=== PATIENT | female | born 1980 | race Caucasian/White ===

== ENCOUNTER → 2018-07-22 | Outpatient (CLI) | payer BC ==
--- NOTE | 2018-07-25 09:18 | MM ---
Reason for exam: screening (asymptomatic). Last mammogram was performed 4 years and 10 months ago. History: Patient had first child at age 32. Took hormonal contraceptives for 15 years beginning at age 17. Physical Findings: A clinical breast exam by your physician is recommended on an annual basis and results should be correlated with mammographic findings. MG Screening Mammo w CAD Bilateral CC and MLO view(s) were taken. Prior study comparison: September 13, 2013, bilateral digital screening mammo w/CAD. There are scattered fibroglandular densities. Finding: There is a 5-6 mm circumscribed round mass located 7-8 cm from the nipple in the outer quadrant, posterior position of the right breast. ASSESSMENT: Incomplete: need additional imaging evaluation, BI-RAD 0 RECOMMENDATION: Special view mammogram and ultrasound of the right breast. [facility] will attempt to contact patient to return for supplemental views and ultrasound.
== END | disposition home or self-care (01) ==
LOC: RADMAMWWP 07:13
PROVIDERS: ATTEND Obstetrics & Gynecology
DX: Z12.31 Encounter for screening mammogram for malignant neoplasm of breast (principal)
CPT/HCPCS: 77067

== ENCOUNTER → 2018-08-03 | Outpatient (CLI) | payer BC ==
--- NOTE | 2018-08-04 08:29 | MM ---
Reason for exam: additional evaluation requested from abnormal screening. Last mammogram was performed less than 1 month ago. History: Patient had first child at age 32. Took hormonal contraceptives for 15 years beginning at age 17. Physical Findings: Nurse did not find any significant physical abnormalities on exam. MG Work Up Mamm w CAD RT Spot compression CC, spot compression MLO, and LM view(s) were taken of the right breast. Prior study comparison: July 22, 2018, bilateral MG screening mammo w CAD. September 13, 2013, bilateral digital screening mammo w/CAD. Persistent nodule 7 o'clock right breast, 8cm from nipple. These results were verbally communicated with the patient and result sheet given to the patient on 08/03/18. ASSESSMENT: Incomplete: need additional imaging evaluation, BI-RAD 0 RECOMMENDATION: Ultrasound of the right breast.
--- NOTE | 2018-08-04 08:30 | USB ---
Reason for exam: additional evaluation requested from abnormal screening. History: Patient had first child at age 32. Took hormonal contraceptives for 15 years beginning at age 17. US Breast Workup Limited RT Right limited breast ultrasound including focal area of concern, retroareolar and axilla demonstrates a 0.5 x 0.4 x 0.5cm cystic lesion at 7 o'clock. These results were verbally communicated with the patient and result sheet given to the patient on 08/03/18. ASSESSMENT: Probably benign, BI-RAD 3 RECOMMENDATION: Ultrasound of the right breast in 6 months.
== END ==
LOC: RADMAMWWP 14:41
PROVIDERS: ATTEND Obstetrics & Gynecology
DX: R92.8 Other abnormal and inconclusive findings on diagnostic imaging of breast (principal)
CPT/HCPCS: 77065

== ENCOUNTER → 2019-02-01 | Outpatient (CLI) | payer BC ==
--- NOTE | 2019-02-01 08:44 | USB ---
Reason for exam: follow-up at short interval from prior study. History: Patient had first child at age 32. Took hormonal contraceptives for 15 years beginning at age 17. Physical Findings: Nurse did not find any significant physical abnormalities on exam. US Breast Limited RT Right limited breast ultrasound including focal area of concern, retroareolar and axilla demonstrates a 0.4 x 0.2 x 0.3cm cystic lesion at 7 o'clock, smaller than previous. These results were verbally communicated with the patient and result sheet given to the patient on 02/01/19. ASSESSMENT: Benign, BI-RAD 2 RECOMMENDATION: Return to routine screening mammogram schedule for both breasts. Back on schedule for July 2019.
== END | disposition home or self-care (01) ==
LOC: RADUSWWP 08:00
PROVIDERS: ATTEND Obstetrics & Gynecology
DX: R92.8 Other abnormal and inconclusive findings on diagnostic imaging of breast (principal)

== ENCOUNTER 2019-06-16 10:35 | Day surgery (SDC) | payer BC ==
[2019-06-14 11:58] VITALS: BMI 26.9
[~2019-06-16 10:35] MED LIST: LACTATED RINGERS 1,000 ML IV SCH
[2019-06-16 11:02] VITALS: TEMP 98.2
[2019-06-16] MEDS ORDERED: LIDOCAINE 1% 20 ML VIAL (10MG/ML) FOR IV START INTRADERMA ONE (11:03)
[2019-06-16] MEDS ORDERED: PROPOFOL 10 MG/ML 20 ML VIAL IV ONE (11:59)
[2019-06-16] MEDS ORDERED: LIDOCAINE 1% INJ 10MG/ML (20 ML MDV) ONE (11:59)
--- NOTE | 2019-06-16 12:19 | P.PCN ---
Date of Procedure: 06/16/19 Procedure(s) Performed: BRIEF HISTORY: Patient is a 38-year-old pleasant female scheduled for an elective colonoscopy as a part of screening for colorectal neoplasia. Her paternal grandmother and maternal grandfather was diagnosed with colon cancer. Her last coloscopy was 5 years ago. PROCEDURE PERFORMED: Colonoscopy. PREOPERATIVE DIAGNOSIS: Screening for colon cancer/family history of colon cancer. IV sedation per Anesthesia. PROCEDURE: After informed consent was obtained, the patient, was brought into the endoscopy unit. IV sedation was administered by Anesthesia under continuous monitoring. Digital rectal examination was normal. Initially the Olympus CF-160 flexible video colonoscope was then inserted in the rectum, gradually advanced into the cecum without any difficulty. Careful examination was performed as the scope was gradually being withdrawn. Ileocecal valve and the appendiceal orifice were visualized and appeared normal. Prep was excellent. Mucosa of the cecum, ascending colon, transverse colon, descending colon, sigmoid colon, and rectum appeared normal. Retroflexion was performed in the rectum and no lesions were seen. The patient tolerated the procedure well. IMPRESSION: Normal-appearing colon from rectum to cecum with no evidence of colorectal neoplasia. RECOMMENDATIONS: Findings of this examination were discussed with the patient is a family. She was advised to have a repeat screening colonoscopy in 5 years.
[2019-06-16 12:32] VITALS: RESP 18
[2019-06-16 12:50] VITALS: BP 130/70; PULSE 67
== END 2019-06-16 12:51 | disposition home or self-care (01) ==
LOC: ORWHC2ENDO 10:35
PROVIDERS: ATTEND Internal Medicine Gastroenterology
DX: Z12.11 Encounter for screening for malignant neoplasm of colon (principal); Z80.0 Family history of malignant neoplasm of digestive organs; Z87.891 Personal history of nicotine dependence
CPT/HCPCS: 81025; J2001; J2704; G0105

== ENCOUNTER → 2019-11-09 | Outpatient (CLI) | payer BC ==
--- NOTE | 2019-11-09 16:21 | CT ---
EXAMINATION TYPE: CT brain wo con DATE OF EXAM: 11/09/2019 COMPARISON: None. HISTORY: Headache. CT DLP: 1233 mGycm. Automated Exposure Control for Dose Reduction was Utilized. TECHNIQUE: CT scan of the head is performed without contrast. FINDINGS: There is no acute intracranial hemorrhage, mass effect, or midline shift identified. The ventricles and sulci are within normal limits in size. Nino-white matter differentiation is maintain ed. The globes are intact and the visualized sinuses are clear. The calvarium is intact. IMPRESSION: No acute intracranial hemorrhage or midline shift is seen.
== END | disposition home or self-care (01) ==
LOC: RADCTMAIN 15:59
PROVIDERS: ATTEND Physician Assistant
DX: R51 Headache (principal)
CPT/HCPCS: 70450

== ENCOUNTER → 2019-12-12 | Outpatient (CLI) | payer BC ==
--- NOTE | 2019-12-12 08:08 | US ---
EXAMINATION TYPE: US abdomen APPY DATE OF EXAM: 12/12/2019 COMPARISON: NONE CLINICAL HISTORY: R10.33 PERIUMBILICAL PAIN. Pain 1 week before her cycle that has since went away APPENDIX AP Diameter (normal < 6mm): 4 mm Measured outer wall to outer wall. Is the appendix seen in its entirety from the proximal cecum to distal end: No. Tube like structure visualized in the RLQ measuring 0.4 cm, possible appendix vs other Does the appendix wall appear hypervascular: No Is an appendicolith present: No Is there inflammatory changes or free fluid present: No No sonographic evidence for appendicitis on this exam IMPRESSION: Incomplete visualization of the appendix. Correlate clinically.
--- NOTE | 2019-12-12 08:15 | US ---
EXAMINATION TYPE: US pelvic complete DATE OF EXAM: 12/12/2019 COMPARISON: NONE CLINICAL HISTORY: R10.33 PERIUMBILICAL PAIN. TECHNIQUE: . Transabdominal sonographic images of the pelvis were acquired. Date of LMP: 11/16/2019 EXAM MEASUREMENTS: Uterus: 6.5 x 3.9 x 6.0 cm Endometrial Stripe: 0.5 cm Right Ovary: 3.5 x 1.5 x 1.7 cm Left Ovary: 2.1 x 1.3 x 1.2 cm 1. Uterus: Anteverted wnl 2. Endometrium: wnl 3. Right Ovary: wnl 4. Left Ovary: wnl 5. Bilateral Adnexa: wnl 6. Posterior cul-de-sac: wnl IMPRESSION: No distinct abnormality appreciated.
== END ==
LOC: RADUSWWP 06:54
PROVIDERS: ATTEND Family Medicine
DX: R10.33 Periumbilical pain (principal)
CPT/HCPCS: 76705; 76856

== ENCOUNTER → 2020-03-04 | Outpatient (CLI) | payer BC ==
--- NOTE | 2020-03-11 10:55 | MM ---
Reason for exam: screening (asymptomatic). Last mammogram was performed 1 year and 7 months ago. History: Patient had first child at age 32. Took hormonal contraceptives for 15 years beginning at age 17. Physical Findings: A clinical breast exam by your physician is recommended on an annual basis and results should be correlated with mammographic findings. MG Screening Mammo w CAD Bilateral CC and MLO view(s) were taken. Prior study comparison: August 03, 2018, right breast MG work up mamm w CAD RT. July 22, 2018, bilateral MG screening mammo w CAD. There are scattered fibroglandular densities. No significant changes when compared with prior studies. ASSESSMENT: Negative, BI-RAD 1 RECOMMENDATION: Routine screening mammogram of both breasts in 1 year.
== END | disposition home or self-care (01) ==
LOC: RADMAMWWP 13:14
PROVIDERS: ATTEND Obstetrics & Gynecology
DX: Z12.31 Encounter for screening mammogram for malignant neoplasm of breast (principal)
CPT/HCPCS: 77067

== ENCOUNTER → 2020-10-24 | Outpatient (CLI) | payer BC ==
--- NOTE | 2020-10-24 09:38 | US ---
EXAMINATION TYPE: US kidneys/renal and bladder DATE OF EXAM: 10/24/2020 COMPARISON: NONE CLINICAL HISTORY: K83.8 other specified diseases of billary tract. EXAM MEASUREMENTS: Right Kidney: 12.2 x 4.1 x 5.5 cm Left Kidney: 10.8 x 5.6 x 5.6 cm Right Kidney: There may be some minimal prominence of the renal collecting system.. Cystic area visua lized upper pole measuring 0.5 cm Left Kidney: No hydronephrosis or masses seen Bladder: wnl Bilateral Jets seen: Yes IMPRESSION: 1. Small cortical renal cyst right kidney. 2. Minimal right renal hydronephrosis.
== END | disposition home or self-care (01) ==
LOC: RADUSWWP 07:03
PROVIDERS: ATTEND Family Medicine
DX: N28.1 Cyst of kidney, acquired (principal); N13.30 Unspecified hydronephrosis
CPT/HCPCS: 76770

== ENCOUNTER → 2020-12-20 | Outpatient (CLI) | payer BC ==
--- NOTE | 2020-12-20 08:48 | MR ---
MRI CERVICAL SPINE: CLINICAL HISTORY: Neck pain causing pain and weakness N numbness into right arm for 6 months TECHNIQUE: Multiplanar, multisequence imaging of the cervical spine is performed without IV contrast. COMPARISON: None. FINDINGS: Sagittal images of the cervical spine show the craniocervical junction to appear within nor mal limits. The cervical and upper thoracic spinal cord is normal in caliber and signal. Slight grad e 1 retrolisthesis C5 on C6 and to lesser degree C6 on C7. The vertebral body heights are normal. M ild to moderate disc space narrowing C5-C6 level. Moderate anterior spurring C6-C7 level. The bone ma rrow signal intensity is within normal limits. Axial images show C2-C3 through the C4-C5 level to appear within normal limits. Axial images at C5-C6 level. Spondylolisthesis with broad-based right paracentral disc protrusion, th ere is effacement of the anterior thecal sac along with moderate to severe right-sided neural foramin al narrowing, there is mild left-sided neural foraminal narrowing. Axial images at C6-C7 level shows spondylolisthesis with small right paracentral/foraminal disc protr usion causing asymmetric mild right-sided neural foraminal narrowing. Axial images at C7-T1 level appear within normal limits. IMPRESSION: Spondylolisthesis and degenerative changes at C6-C7 and to greater degree at C5-C6 as det nadine above.
== END | disposition home or self-care (01) ==
LOC: RADMRIMAIN 08:07
PROVIDERS: ATTEND Family Medicine
DX: M48.02 Spinal stenosis, cervical region (principal); M50.223 Other cervical disc displacement at C6-C7 level; M47.812 Spondylosis without myelopathy or radiculopathy, cervical region; M43.12 Spondylolisthesis, cervical region
CPT/HCPCS: 72141

== ENCOUNTER 2021-05-13 05:41 | Day surgery (SDC) | payer BC ==
[2021-05-07 09:20] VITALS: BMI 27.4
--- NOTE | 2021-05-12 08:25 | P.HPOR ---
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 Location diffuse Activity Modification yes , unable to perform bending/lifting/twisting motions regarding the neck. Hand Dominance right DOI: Pain started in 01/2020 with no known injury or trauma. Acute on chronic cervical disc herniation. TREATMENTS COMPLETED: 6 weeks of PT completed? Yes How many sessions? 12 Did it help? Temporary improvement but has since waned Physician directed home exercise completed? No Medications yes List: Medrol dose sean with no relief Alternative interventions Chiropractic?: yes , with no relief Brace: No Injections No RFA: No SUBJECTIVE: Patient presents to the office for her pre-operative appointment to review and questions she may have. Since the time of the last appointment the patient notes that her symptoms have failed to improve with any conservative treatments tried and is unable to complete many of her daily functions due to her ongoing symptomology. Patient is ready to proceed with the planned procedure at this time. Patient denies any bladder or bowel issues, no perineal numbness/tingling, and ambulates without the use of any aides. HPI: Ms. Jacome last presented to the office on 02/07/2021 for an evaluation of her cervical radiculopathy. To review, the patient states that her symptoms have been ongoing for 1 year with no known injury or trauma to indicate an exact onset of her symptoms. Regarding her symptoms, the patient states that she has moderate pain about the neck diffusely which is constant. The patient states that she has radiculopathic pain radiating down into her right upper extremity. Furthermore, the patient reports numbness and tingling in the index, middle, and ring fingers that is also constant, but worsens with using the right hand. The patient reports that since the initial onset of the pain she has had weakness about the right arm and hand, which has gradually worsened over time. Regarding her symptoms, she notes that they are exacerbated with bending/lifting/twisting motions and ambulation. Patient reports being previously evaluated by Dr. Emma larson for this issue and was referred here for further treatment. Regarding treatments, the patient reports seeing a chiropractor 5 times with no improvement to her symptoms.Overall she feels that her symptoms have progressively worsened and have not improved with conservative treatments thus far. She notes that it is increasingly difficult for her to complete her daily tasks due to her symptomology. The patients' past social, medical, family, surgical history, as well as review of systems, have been reviewed. Please refer to the Neurosurgery History and Physical form that has been scanned in to our electronic medical record system. Review of Systems 14 points review of systems completed and as stated in HPI, all other systems reviewed are negative. Past Medical History Past Medical History: Musculoskeletal Disorder Additional Past Medical History / Comment(s): numbness down right arm primarily History of Any Multi-Drug Resistant Organisms: None Reported Past Surgical History: Section Past Anesthesia/Blood Transfusion Reactions: No Reported Reaction Smoking Status: Former smoker - Past Family History Mother Family Medical History: No Reported History Medications and Allergies Home Medications Medication Instructions Recorded Confirmed Type Ascorbic Acid [Vitamin C] 500 mg PO DAILY 05/07/21 05/07/21 History Calcium Carbonate [Calcium] 600 mg PO DAILY 05/07/21 05/07/21 History Cholecalciferol [Vitamin D3 (25 25 mcg PO DAILY 05/07/21 05/07/21 History Mcg = 1000 Iu)] Turmeric Root Extract [Turmeric] 500 mg PO DAILY 05/07/21 05/07/21 History Allergies Allergy/AdvReac Type Severity Reaction Status Date / Time No Known Allergies Allergy Verified 05/07/21 09:20 Physical Examination Osteopathic Statement: *. No significant issues noted on an osteopathic structural exam other than those noted in the History and Physical/Consult. PHYSICAL EXAMINATION: General: Awake, alert, appropriate for age, in no acute distress. HEENT: No unusual neck masses around region of lateral neck triangle, thyroid, supraclavicular groove Extremities: Skin warm and dry without acute lesions, coloration, temperature, skin intact, no tenderness or erythema Integument: Hairy patches: Absent Dorsal skin dimples: Absent Cafe au lait spots: Absent Surgical incisions: No Palpation: Please see Pain drawing on Intake sheet for further detail. Midline spinal tenderness: No E6 Paralumbar tenderness: No E6 Parathoracic tenderness: No E6 Buttocks tenderness: No E6 Special findings: No POSTURAL and MUSCULO-SKELETAL EVALUATION: Coronal Balance: NEUTRAL Recumbent testing: Patient is able to lay flat on back Sagittal Balance: NEUTRAL Shoulder Profile: LEVEL Pelvic Girdle: LEVEL Neck ROM: RESTRICTED Lumbar ROM: UNRESTRICTED Shoulder ROM: Symmetrical Hip ROM: Symmetrical Knee ROM: Symmetrical Hands: Normal appearance, symmetrical Feet: Normal appearance, Symmetrical VASCULAR STATUS : LEFT RIGHT Wrist Pulses INTACT INTACT Pedal Pulses (Dors. pedis & post.tibialis) INTACT INTACT Color NORMAL NORMAL Edema Absent Absent NEUROLOGIC EXAMINATION: Mental Status:Awake and alert, fully oriented, with normal attention, concentration and memory, and fluent, appropriate speech. Cranial Nerves: I: Olfactory not tested. II: Visual acuity normal, no visual field deficit noted with confrontation. III,IV: Normal pupillary reflexes & intact extraocular movements without nystagmus. V,: Intact symmetrical facial sensation. VII: Intact symmetrical facial motor movement VIII: Hearing intact. IX,X: Intact gag, swallow, & normal voice. XI: Sternocleidomastoid, trapezius function intact. XII: Tongue midline with normal movements. L'hermitte's Sign: Negative / absent Spurling'Sign: Absent bilaterally. Cubital percussion test: Absent bilaterally. Stefanie-Tinel sign - Carpal region: Absent bilaterally. Straight Leg Raising: Absent bilaterally. Crossed straight leg raise: negative O8 MOTOR EXAM (0-5/5, N/T) STRENGTH RIGHT LEFT Shoulder Abd (not part of the MOJGAN score) 5 5 Elbow Flexors 5 5 Elbow Extensor 4 5 Wrist Dorsiflexors 4 5 Finger Abductor 5 5 Hydrography Teacher 4+ 5 Hip Flexor (Not part of MOJGAN Motor score) 5 5 Knee Flexor 5 5 Knee Extensor 5 5 Ankle dorsiflexor 5 5 Ankle plantarflexion 5 5 Extensor hallucis 5 5 REFLEXES(0-4/2, NT) RIGHT LEFT Upper Extremities 3+ 3+ Lower Extremities 2 2 Pathological Reflexes RIGHT LEFT Vora's Absent Present Clonus Absent Absent Babinski Absent Absent # Indicates mechanical impairment Muscle appearance: Symmetrical, without signs of atrophy or dystrophy. Rectal Tone:Deferred Normal, strong with volition control Sensory system (0-4, N/T) Test type RU JOSE RL LL Joint-Position 2 2 2 2 Vibration 2 2 2 2 Pain & LT sense 2 2 2 2 Dermatomal Deficit: C6-7 None None None Gait and Functional Evaluation: Ambulatory aids: Independent Romberg's test: Intact bilaterally Toe heel walk / heel-toe walk intact while maintaining satisfactory balance? yes Squatting/straightening w/o assistance to a min of 60 degree knee flexion? yes Single leg stance: intact Trendelenburg sign negative bilaterally Hand and finger dexterity intact bilaterally? yes Disdiadochokinesis examination negative bilaterally? yes Results XRAY C spine - Spondylosis noted of the C5-7 region with disc collapse. No fracture or dislocation noted at this time. No overt instability. C0-1 and C1-2 are stable through F/E. There is no subaxial instability. MRI C spine - This demonstrates cervical spondylosis C5-7 with HNP C5-6 and C6-7 with stenosis moderate to severe at these levels. There is bilateral foraminal stenosis related to this as well. There is disc height collapse secondary to this. There is no fracture or dislocation noted. There is no C0-1 or C1-2 instability noted at this time. Subaxial C spine appears stable otherwise. Assessment and Plan Assessment: 1. C5-C7 herniated nucleus pulposus 2.Right upper extremity weakness 3. Right upper extremity radiculopathy Plan: Spine Surgery Risk Review Yazmin Jacome is a 40 y/o while female presenting for evaluation of cervical pain and right upper extremity radiculopathy. It was my pleasure to have seen and examined Yazmin Jacome . In our visit today we have had a chance to go over subjective complaints, physical examination findings and treatments including the natural course histor y without intervention and various interventional options. The patients imaging demonstrates cervical spondylosis C5-7 with HNP C5-6 and C6-7 with stenosis moderate to severe at these levels. There is bilateral foraminal stenosis related to this as well. There is disc height collapse secondary to this. There is no fracture or dislocation noted. There is no C0-1 or C1-2 instability noted at this time. Subaxial C spine appears stable otherwise. On physical exam, Yazmin Jacome demonstrates right upper extremity weakness and a C6-C7 dermatomal deficit. I have explained to the patient that as their condition progresses it will cause further neurological deficits and eventual paralysis. Based on the patients i maging, physical exam, and the rapid progression and disabling nature of their symptoms, at this time I recommend surgery in the form or a: C5-C6, C6-C7 Total Disc Replacement. I discussed the risk and benefits of this procedure at length with Yazmin Jacome . The patient agreed to considered pursuing the procedure abovementioned. Prior to surgery, she should follow up with her PCP (Cardio, ID, IM etc) for clearance. Questions were invited and answered, and the patient wishes to proceed as outlined below. Currently, I am recommendin.C5-C6, C6-C7 Total Disc Replacement. 2.Follow up with PCP for surgical clearance 3.Review of surgical risks and benefits as well as an educational packet on the proposed surgical procedure. Risks: All surgical procedures come with inherent risks, including those related to positioning, anesthesia, intraoperative findings, and postoperative complications. It is important to understand that surgery does not come with any guarantee of a successful outcome as complications and adverse events are always possible. The patient was given a handout in office today discussing the surgical procedure and risks associated with the intervention, both of which were disc ussed with the patient. These risks include but are not limited to the following: * Experiencing same, different or even worse symptoms in back, neck, arms, or legs compared to before surgery. Requiring further surgery or other forms of treatment presently or at some time in the future at same or other levels of the intended spine surgery. On an extreme but fortunately relatively rare basis severe complication such as blindness, stroke, heart attack, temporary and/or permanent nerve injury, paralysis, coma, or may occur, sometimes without known explanation. Surgical complications may include but are not limited to risk of infection, fluid accumulation in the surgical dissection site, including a seroma or hematoma, that requires additional surgery, wound drainage, bleeding, new numbness or weakness, vision changes/loss, spinal fluid leakage, non-healing and/or infected incision, headaches, difficulty or inability to swallow, hoarseness, hemopneumothorax, pneumothorax, impotence, retrograde ejaculation, vaginal dryness; injury to nerves, spinal cord, blood vessels, lymphatics or other vital organs (i.e., bowel injury, injury to the great vessels); hetero topic bone formation; complications related to the hardware such as screws, rods, cages including misplaced hardware, device failure, instrumentation at the wrong spine level, hardware fracture/breakage, or hardware loosening; vertebral failure of the spinal column above or below the newly placed hardware; retained surgical instrumentations or devices and the need for further surgery. * Medical risks of the planned spine surgery include but are not limited to generalized Infections to the whole body or local areas outside of the surgical site (sepsis), heart attack, bleeding, anaphylaxis, meningitis, seizure, epilepsy, hearing loss, burn obrien, laceration of the head or other areas of the body, bruising, hypersensitivity of the skin, bladder over distension; allergic reaction; shoulder injury related to positioning; fat, blood and air clots to other areas of the body like heart, lungs, brain; failure of internal organs such as lungs, kidneys, liver and excessive bleeding. If blood transfusions are necessary, note that transfusions may cause intolerance reactions such as anaphylaxis or other complex reactions. Despite best efforts, the results of spine surgery might not heal in terms of bone, soft tissues such as skin, fascia, ligaments, and joints. Additionally, in order to achieve best possible results, spine surgery may be carried out beyond the initially planned levels and involve decompression, fusion including insertion of hardware at levels other than the original intended area of surgical interest change some portions of the procedure in order to ensure the best possible outcomes. With spine surgery and spinal fusion, there are different off label uses of instrumentation (devices, implants and hardware) as well as biological substances (bone morphogenic proteins, demineralized bone matrix) as well as using extra bone from allograft sources (i.e. cadaver bone) or autograft (iliac crest bone, ribs, or the spine itself). The patient has been given information about these practices and their inherent risks and benefits. [facility] is an educational center that serves as a training facility for neurosurgical and orthopedic spine residents and fellows. Residents are physicians who are completing their surgical intensive training following medical school. They assist in the operating room with direct supervision of the attending surgeons. Veyo are surgeons who have completed their training and eligible for board certification. They have opted for an elective year of more specialized training in their field. They assist in the operating room under the supervision of the attending surgeons. Physician assistants are medically trained surgical providers who function in the outpatient, inpatient, and operating room setting under the direct supervision of the attending surgeon. [facility] has multiple operating rooms with single and overlapping rooms running daily. They currently function under the required guidelines as produced by the [facility] Finance Committee with regards to the overlapping rooms and will continue to comply with changes to this policy as they occur. The requirements include and are complied with as follows: (1) the critical portions of the overlapping rooms will not occur at the same time, (2) the attending physician will be physically present during the critical portions of the pro cedure and immediately available during the entire case, and (3) a back-up attending is designated should the primary attending not be immediately available. The patient has had a chance to review all the listed information, has been given print outs detailing this information, and has had all his/her questions answered to their satisfaction. It was my pleasure to have seen and examined Yazmin Jacome . In our visit today we have had a chance to go over my understanding of our patient's current condition, the natural course history without intervention and various in terventional options. Questions were invited and answered, and the patient wishes to proceed as outlined above. I have seen and examined the patient for 25 minutes and we have spent more than 50% of the time in repeat and detailed counseling about the patient's condition, its natural course history with out and as much as can be predicted with surgery and re-review of various surgical treatment options. In conclusion, Yazmin Jacome requested we proceed with the above suggested surgery and are willing to accept risks and limitations of the suggested surgery as nature of the disease process and our best attempts at treatment for the condition. Thank you again for allowing us to be part of your patient's care. Please don't hesitate to contact me if you have any further questions. Signed and authenticated by: Vincent [facility] [address] [place] [address] [address]
[~2021-05-13 05:41] MED LIST changes: +ACETAMINOPHEN TAB 500 MG TAB PO PRN; +GABAPENTIN 300 MG CAP PO PRN; -LACTATED RINGERS 1,000 ML IV SCH; +ONDANSETRON 4 MG/2 ML VIAL IVP PRN; +TRANEXAMIC ACID 1,000 MG in SODIUM CHLORIDE 0.9% 100 ML IVPB PRN
[2021-05-13] MEDS ORDERED: LIDOCAINE 1% (10MG/ML) FOR IV START INTRADERMA PRN (05:47)
[2021-05-13] MEDS: LACTATED RINGERS 1,000 ML IV SCH ×3 (06:39→07:23)
--- NOTE | 2021-05-13 06:58 | P.PN ---
Progress Note - Text Progress Note Date: 05/13/21 HP update: Pt s/e in PACU. she is ready and willing to proceed as outlined in H&P. Site marked. COnsent confirmed.
[2021-05-13] MEDS ORDERED: SUCCINYLCHOLINE CHLORIDE 100 MG/5 ML SYR IV ONE (07:21)
[2021-05-13] MEDS ORDERED: PROPOFOL 10 MG/ML 20 ML VIAL IV ONE (07:21)
[2021-05-13] MEDS ORDERED: MIDAZOLAM 2 MG/2 ML VIAL ONE (07:21)
[2021-05-13] MEDS ORDERED: HYDROmorphone (PF) 1 MG/ML ONE (07:21)
[2021-05-13] MEDS ORDERED: TRANEXAMIC ACID 1,000 MG/10 ML VIAL ONE (07:21)
[2021-05-13] MEDS ORDERED: fentaNYL (PF) 50 MCG/ML 2 ML AMP ONE (07:21)
[2021-05-13] MEDS ORDERED: SODIUM CHLORIDE 0.9% 100 ML BAG ONE (07:21)
[2021-05-13] MEDS ORDERED: KETAMINE 10 MG/ML 20 ML VIAL ONE (07:21)
[2021-05-13] MEDS ORDERED: LIDOCAINE 1% INJ 10MG/ML (20 ML MDV) ONE (07:21)
[2021-05-13] MEDS ORDERED: THROMBIN (BOVINE) 5,000 UNIT VIAL TOPICAL ONE (08:03)
[2021-05-13] MEDS ORDERED: GELATIN SPONGE,ABSORB (LARGE) 1 EACH SPONGE TOPICAL ONE (08:03)
[2021-05-13] MEDS ORDERED: LACTATED RINGERS 1,000 ML IV ONE (10:18)
--- NOTE | 2021-05-13 10:18 | FL ---
EXAMINATION TYPE: FL guidance operating room DATE OF EXAM: 05/13/2021 HISTORY: Fluoroscopy time 2 minutes and 3 seconds of fluoroscopy provided. IMPRESSION: 1. Fluoroscopy time.
--- NOTE | 2021-05-13 10:24 | XR ---
EXAMINATION TYPE: XR cervical spine limited DATE OF EXAM: 05/13/2021 COMPARISON: NONE HISTORY: post op TECHNIQUE: 10 views are submitted. FINDINGS: Intraoperative images demonstrate ET tube and degenerative change lower cervical spine. Postsurgical changes are seen which appear in near-anatomic alignment. IMPRESSION: 1. Postop change
[2021-05-13] MEDS ORDERED: HYDROmorphone 0.5 MG/0.5 ML SYRINGE IVP PRN (10:26)
[2021-05-13] MEDS ORDERED: CYCLOBENZAPRINE 5 MG TAB PO PRN (10:26)
[2021-05-13] MEDS ORDERED: SENNOSIDES-DOCUSATE SODIUM 1 EACH TAB PO PRN (10:26)
[2021-05-13] MEDS: HYDROmorphone 0.5 MG/0.5 ML SYRINGE IVP PRN ×2 (10:50→11:05)
[2021-05-13] MEDS ORDERED: diphenhydrAMINE 50 MG/ML 1 ML VIAL IVP ONE (11:04)
[2021-05-13] MEDS: ACETAMINOPHEN TAB 325 MG TAB PO SCH ×3 (13:44→23:26)
[2021-05-13] MEDS ORDERED: ONDANSETRON 4 MG/2 ML VIAL IVP PRN (17:23)
--- NOTE | 2021-05-13 19:32 | XR ---
EXAMINATION TYPE: XR cervical spine comp DATE OF EXAM: 05/13/2021 7:21 PM INDICATION: Patient age:Female; 40 years old; Reason for study: s/p C5-C7 ACDF; COMPARISON: Spine x-ray 02/07/2021 05/13/2021 TECHNIQUE: The cervical spine was imaged in 4 projections. FINDINGS: Surgical changes to the C5-C7 levels with improved anatomic alignment. Lucencies are seen inferior to the spine which are likely postsurgical and/or within the esophagus. No unexpected foreign bodies. IMPRESSION: 1. No fracture or dislocation surgical changes with hardware in appropriate position. 2. Mild degenerative disc disease changes of the cervical spine.
[2021-05-13 20:21] VITALS: RESP 18
[2021-05-13] MEDS: HYDROcodone/APAP 10-325MG 1 EACH TAB PO PRN (22:28)
[2021-05-14] MEDS: HYDROcodone/APAP 10-325MG 1 EACH TAB PO PRN (03:46)
[2021-05-14] MEDS: ACETAMINOPHEN TAB 325 MG TAB PO SCH (06:04)
[2021-05-14 06:29] LABS: Basophils % (A) 0 %; Eosinophils # (A) 0.1 k/uL (0-0.7); Eosinophils % (A) 1 %; HGB 12.2 gm/dL (11.4-16.0); Lymphocytes # (A) 1.6 k/uL (1.0-4.8); Lymphocytes % (A) 13 %; MCH 30.9 pg (25.0-35.0); MCHC 32.9 g/dL (31.0-37.0); Mean Platelet Volume 7.2; Monocytes # (A) 0.6 k/uL (0-1.0); Monocytes % (A) 5 %; Neutrophils # (A) 9.6 k/uL (1.3-7.7); Neutrophils % (A) 79 %; Platelet Count 255 k/uL (150-450); RBC 3.94 m/uL (3.80-5.40); RDW 12.5 % (11.5-15.5)
[2021-05-14 07:55] VITALS: BP 126/85; PULSE 75; TEMP 98.4
--- NOTE | 2021-05-14 08:08 | P.PN ---
Subjective Progress Note Date: 05/14/21 Patient seen and examined she doing fairly well as morning she does complain of some swallowing difficulty and pain seems to be a little worse than yesterday but she is not worried about her she can still get down fluids as well as thickened liquids. She denies any horse for she denies any other symptoms at this time states the numbness and tingling in her hands feels better. Denies any weakness. No fevers chills shortness breath or chest pain Objective - Vital Signs Vital signs: Vital Signs Temp 98.4 F 05/14/21 07:54 Pulse 75 05/14/21 07:54 Resp 18 05/14/21 07:54 BP 126/85 05/14/21 07:54 Pulse Ox 96 05/14/21 07:54 Intake & Output 05/13/21 05/14/21 05/14/21 18:59 06:59 18:59 Intake Total 2430 540 Output Total 10 Balance 2420 540 Intake: IV 2300 Intake, IV Titration 130 Amount Lactated Ringers 1,000 ml 80 @ 0 mls/hr IV .[facility] Rx#:[id number] ceFAZolin 2 gm In Sodium 50 Chloride 0.9% 50 ml @ 100 mls/hr IVPB Q8HR [facility] Rx# :[id number] Oral 540 Output: Estimated Blood Loss 10 Other: Voiding Method Toilet - Exam Patient is alert and oriented 3 appears well-nourished well-hydrated is in no acute distress. They does not appear septic. On exam the patient has no tenderness to palpation of her thoracic or lumbar spine. There is no edema or ballottement sign. Lower extremities with 5 out of 5 strength in all major muscle groups Upper extremities show 5/5 strength in all major muscle groups. Still with mild communications representative strength weakness on the right however improving overall There is FROM that is painless of the b/l UE and LE in all major joints. They are intact to light touch sensation in L2 to S1 nerve distribution. Patient has palpable dorsalis pedis was posterior tibial pulses. Compartments are soft and compressible. Patient shows a negative Homans, Vora's, negative Babinski's negative clonus bilaterally. negative straight leg raise bilaterally. No tensioning signs. Cranial nerves II through XII are grossly intact. Overall alignment is well-maintained in the sagittal coronal planes. Incision is clean dry and intact no erythema or ecchymosis or edema - Labs CBC & Chem 7: 05/14/21 06:04 Labs: Abnormal Lab Results - Last 24 Hours (Table) 05/14/21 Range/Units 06:04 WBC 12.0 H (3.8-10.6) k/uL Neutrophils # 9.6 H (1.3-7.7) k/uL Assessment and Plan Assessment: 40-year-old female postop day 1 C5 6 C6 7 total disc replacement 1. C5-C7 herniated nucleus pulposus 2.Right upper extremity weakness 3. Right upper extremity radiculopathy Plan: -Appreciate application security consultant and team management. -Activity: Ambulate QID, OOB all meals, up and about, limit lifting bending twis ting to less than 5 lbs. Use walker or cane if needed for stability. -Daily PT/OT, increase ambulation strength and balance. -Brace when up and about, not needed in bed or chair -Pain control: Adequate at this time -Meds: reviewed -GI ppx: senna, Miralax -DVT PPX: Mechanical -Hygiene: Shower today. Maintain dressing clean and dry. Meticulous cleaning after BMs away from incision site -Encourage IS 10x/hr -Dispo: Home Today
--- NOTE | 2021-05-14 09:22 | P.DS ---
Providers Date of admission: 05/13/2021 Expected date of discharge: 05/14/21 Attending physician: Vincent Crockett DO Consults: 05/13/21 10:29 Consult Physician Routine Consulting Provider: Baldo Arita Consult Reason/Comments: Medical Management s/p C5-C7 ACDF Do you want consulting provider notified?: Yes Primary care physician: [facility] Course: Date of admission: 05/13/2021 Date of discharge: 05/14/2021 Admission diagnosis: 1. C5-C7 herniated nucleus pulposus 2.Right upper extremity weakness 3. Right upper extremity radiculopathy Discharge diagnosis: Same Attending physician: Dr. Crockett Surgical procedures: C5,C6 C7 total disc replacement Brief history: Patient is a 40-year-old female with a history of C5-C7 herniated nucleus pulposus; right upper extremity weakness; right upper extremity radiculopathy. At this point patient has failed conservative treatment measures and has opted to proceed with a elective C5, C6, C7 total disc replacement. Hospital course: Details of patient's surgery can be found in operative report. Patient tolerated the procedure well and was subsequently transported to orthopedic floor. Patient's orthopeidc and medical care was provided daily. Patient had daily laboratory tests performed for evaluation of overall blood counts. Patient had daily physical therapy to include strengthening range of motion as well as education with walker ambulation. Patient was noted to have a relatively uneventful postoperative course. Patient reported satisfactory pain control with oral pain medications by postoperative day 1. Patient showed satisfactory progress with physical therapy. Patient moved steadily through the program and had no difficulty meeting the goals by postoperative day 1. Given patient's otherwise satisfactory course and having met physical therapy goals, plan is to discharge patient home on postoperative day 1. Discharge condition/disposition: Patient will be discharged home in stable condition. Discharge medications: Instructions are given on resumption of patient's normal daily medications per primary care recommendation, in addition patient will be prescribed . Spine Discharge and Recovery Instructions Date of Surgery: 05/13/2021 Diagnosis: 1. C5-C7 herniated nucleus pulposus 2.Right upper extremity weakness 3. Right upper extremity radiculopathy Procedure: C5,C6, C7 total disc replacement Medications: See medication list All medication refills should be obtained through your primary care doctor or your clinic spine surgeon. Please discuss prescription refills at your follow up appointment. Do not call the hospital for medication refills. Dressing: Leave your dressing in place for a total of 5 days post operatively. Then you may remove your dressing and leave open to air. Keep the area clean and if not able to keep area clean, then cover with sterile gauze and tape. Showering: You may shower 3 days after your procedure allowing soap and water to run over incision. Do not scrub. Do not soak. Blot dry. Follow up: Please confirm a follow up appointment with your surgeon 3 weeks post operatively. Please make an appointment to follow up with your PCP in 1-2 weeks after surgery for evaluation 3 phase, 3-week plan POST OP WEEKS 1-3 1. Lifting/carrying/pushing/pulling limited to less than 5 pounds. 2. Do not sit for longer than 15 minutes at one time. Get up and walk around. Prolonged sitting is NOT advised. If you lay down, see if you can tolerate laying down on you front (belly side) 3. Walk for periods of 15 minutes = 1 mile but no longer; do it multiple times times each day. 4. Ice your low back after activity. POST OP WEEKS 3-6 1. Lifting limited to less than 20 pounds. 2. Do not sit for longer than 30 minutes at a time. Frequently change positions. Use a sit-to stand workstation or take frequent breaks from sitting if you have returned to work. 3. Walk for 30 minutes each day. If possible, do these three or more times a day POST OP WEEKS 6+ At your 6-week appointment we will give you a physical therapy referral to focus on a core stabilization and strengthening program. You should also work on leg & buttock strengthening, hamstring & quadriceps stretching, and continue a low impact aerobic activity program such as swimming, walking, or riding a stationary bicycle. During the initial 6 weeks after your surgery, you are at the highest risk of re-injuring your spine. You should generally avoid BLTs (bending, lifting and twisting combination motions) and follow the above guidelines to reduce the chance of reinjury. You can anticipate post op appointments in our office at approximately 3 weeks and 6 weeks after your surgery. INCISION CARE: If your incision is not draining you do NOT need to cover it with a dressing. Keep your incision clean, dry and intact. In most cases, we apply skin glue, brooklynn or sutures to the incision at the time of surgery. This will be like a crust or have the appearance of a scab and will fall off in time on its own. The stitches or brooklynn need to be removed at 3 weeks post op appointment. You may begin to shower 3 days after surgery (this allows the glue to harvey well). However, please avoid scrubbing the incision site or peeling off any of the skin glue. This will ensure optimal healing of your incision. Also, during this time avoid soaking the incision area in water - this includes swimming pools, hot tubs or baths. No ointments, lotions or oils on the incision until your surgeon allows. Leave brooklynn, sutures or glue in place. Neurological dysfunction that comes on suddenly can also be a sign of a stroke. Below some common symptoms of a stroke are listed: B - balance difficulty such as sudden onset walking or leaning to one side - NEW E - eye problem such as sudden double vision or trouble seeing on one side - NEW F - Facial weakness or numbness on one side - NEW A - Arm or leg weakness or numbness on one side - NEW S - Slurred speech or difficulty with word finding - NEW T - Time is BRAIN! Call 911 as soon as you recognize these symptoms Diet: Consume a regular diet rich in vegetables and lean protein such as chicken or fish. You should consume in a ratio of approximately 20% fats|40% carbohydrates|40%protein. Vegetables, sweet potatoes, brown rice or quinoa are examples of good carbohydrates. Chips, white bread, cookies and sweets/sugar are examples of bad carbohydrates. Limit your bad carbs, go wild with good carbs. "Life's Simple 7" Guidelines as per [place] [employer] These will help you reclaim your life after surgery and flooring helper in your recovery, keeping in mind your restrictions. (1) Get Active. Physical activity can help people lose weight, control high blood pressure and cholesterol, feel emotionally better, and sleep better. (2) Control Cholesterol. Avoid a diet high in saturated fat, trans fat, & cholesterol. Limit whole milk & cream, ice cream, butter, egg yolks, processed meats (like sausage and hot dogs), and fatty meats. Choose healthy foods that are low in saturated fat, trans fat and cholesterol which include: Fruits and vegetables, fiber rich grain products (like whole grain pasta and brown rice), lean meat such as chicken, fish, nuts, seeds, and l egumes. (3) Eat Better. Eat small portions. Shop at the grocery with a list and do not stray from it. Tips for a healthy diet include: Limit sodium intake to less than 1500mg daily, avoid prepackaged, processed, and fast foods, choose a diet rich in fruits, vegetables, and whole grain, high fiber foods, and limit saturated & cholesterol in your diet. (4) Manage Blood Pressure. If you have high blood pressure, you should have a cuff at home so that you can check your blood pressure regularly. Be sure you have a good cuff. An arm one is generally better than a wrist one. Bring the cuff to a doctor's appointment to validate that the measurements that your cuff are taking are accurate. Take your blood pressure twice daily when you are sitting down and relaxing. Record the numbers in a log and bring this log with you to your doctors' appointments. (5) Lose Weight if your BMI is above 25. A healthy BMI is between 19-25. To calculate Your BMI, you may use a Standard BMI Calculator on the NIH BMI website: <www.nhlbi.nih.gov/guidelines/obesity/BMI/bmicalc.htm>. Weigh oneself daily. If you are overweight, set a goal to lose weight. A pound a week loss if needed is a good target. (6) Reduce Blood Sugar. Limit foods and liquids with "added sugars." (Added sugars include sucrose, fructose, glucose, maltose, dextrose, high fructose corn syrup, corn syrup, concentrated fruit juice and honey). (7) Stop Smoking. If you smoke, quitting smoking is one of the best things that you can do for your health. Smoking increases your risk of heart attack, stroke, and peripheral vascular disease, which is a build-up of plaque in your arteries. Please discard all the cigarettes and lighters in your house. Have a plan for what you will do when you have the urge to smoke. Direct and second- hand smoke shortens your life as well as the lives of your family, friends and others around you. For your health and the health of those around you, please consider quitting! Proper Bending Body Mechanics: Maintain a wide stance with one foot slightly in front of the other. Keep your back straight. Bend utilizing the strength in your hips and knees. Do not bend at the waist. Maintain the lifted object at your waist-level close to your body. Avoid lifting weight that causes immediately pain or pain anywhere in the body afterwards. Smoking/Nicotine If there was ever one thing that you could do to increase your overall health, decrease your risk of cardiovascular problems by about 39% the second you make the choice, it is to STOP SMOKING. Your body's most instant gratification is the second you stop smoking. We have all heard the studies, read the articles but it is true, smoking is extremely bad for your overall health, and moreover it is detrimental to your bone health. Nicotine, IN ANY FORM, kills bone cells, prevents your body from healing fractures, and significantly prolongs healing after surgery. In spine surgery specifically, it increases your risk of not healing your bones to create a fusion and increases your risk of having a revision surgery due to this up to 60%. I know it is hard. I know it feels impossible. But there are ways. Take control of your life. We are here to help you through it. And when you are ready, ask us and we can direct you to help if you desire. Use the START Plan to Quit Smoking (please visit the Helpguide.org website listed below for more information): S = Set a quit date. Choose a date within the next 2 weeks, so you have enough time to prepare without losing your motivation to quit. If you mainly smoke at work, quit on the weekend, so you have a few days to adjust to the change. T = Tell family, friends, and co-workers that you plan to quit. Let your friends and family in on your plan to quit smoking and tell them you need their support and encouragement to stop. Look for a quit gorge who wants to stop smoking as well. You can help each other get through the rough times. A = Anticipate and plan for the challenges you'll face while quitting. Most people who begin smoking again do so within the first 3 months. You can help yourself make it through by preparing ahead for common challenges, such as nicotine withdrawal and cigarette cravings. R = Remove cigarettes and other tobacco products from your home, car, and work. Throw away all your cigarettes (no emergency pack!), lighters, ashtrays, and matches. Wash your clothes and freshen up anything that smells like smoke. Sha mpoo your car, clean your drapes and carpet, and steam your furniture. T = Talk to your doctor about getting help to quit. Your doctor can prescribe medication to help with withdrawal and suggest other alternatives. If you can't see a doctor, you can get many products over the counter at your local pharmacy or grocery store, including the nicotine patch, nicotine lozenges, and nicotine gum. Resources for Quitting Smoking: <https://www.[place].gov/documents/[facility]/Quit_Tobacco_Resources_for_patients_313 480_7.pdf> Supplementation: Take recommended dosages of Vitamin D and Calcium to help fortify your bones and help them to heal. See your health maintenance packet for dosages and recommended levels. DVT/VTE prophylaxis: You will be given compression stockings from the hospital. Wear these daily for the first two weeks after surgery. You may take them off at night. You may be prescribed a medication to help thin your blood. Take this as directed. If you are not prescribed this medication, early and frequent ambulation has been shown to be the best prophylaxis to deep vein thrombosis and sequelae related to this event. Assessment: 1. C5-C7 herniated nucleus pulposus 2.Right upper extremity weakness 3. Right upper extremity radiculopathy Procedures: C5,C6 C7 total disc replacement Plan - Discharge Summary Discharge Rx Participant: Yes New Discharge Prescriptions: New cefaDROXiL [Duricef] 500 mg PO Q12HR #10 cap Cyclobenzaprine [Flexeril] 10 mg PO HS PRN #40 tab PRN Reason: Spasms Gabapentin 300 mg PO TID 3 Days #9 cap HYDROcodone/APAP 5-325MG [[place] 5-325] 1 tab PO Q4HR PRN #56 tab PRN Reason: Pain Indomethacin [Indocin] 50 mg PO BID #28 capsule No Action Ascorbic Acid [Vitamin C] 500 mg PO DAILY Calcium Carbonate [Calcium] 600 mg PO DAILY Cholecalciferol [Vitamin D3 (25 Mcg = 1000 Iu)] 25 mcg PO DAILY Turmeric Root Extract [Turmeric] 500 mg PO DAILY Discharge Medication List Ascorbic Acid [Vitamin C] 500 mg PO DAILY 05/07/21 [History] Calcium Carbonate [Calcium] 600 mg PO DAILY 05/07/21 [History] Cholecalciferol [Vitamin D3 (25 Mcg = 1000 Iu)] 25 mcg PO DAILY 05/07/21 [History] Turmeric Root Extract [Turmeric] 500 mg PO DAILY 05/07/21 [History] Cyclobenzaprine [Flexeril] 10 mg PO HS PRN #40 tab 05/14/21 [Rx] Gabapentin 300 mg PO TID 3 Days #9 cap 05/14/21 [Rx] HYDROcodone/APAP 5-325MG [[place] 5-325] 1 tab PO Q4HR PRN #56 tab 05/14/21 [Rx] Indomethacin [Indocin] 50 mg PO BID #28 capsule 05/14/21 [Rx] cefaDROXiL [Duricef] 500 mg PO Q12HR #10 cap 05/14/21 [Rx] Follow up Appointment(s)/Referral(s): Vincent Crockett DO [Doctor of Osteopathic Medicine] - 2 Weeks Activity/Diet/Wound Care/Special Instructions: Spine Discharge and Recovery Instructions Date of Surgery: 05/13/2021 Diagnosis: 05/14/2021 Procedure: C5 to C7 total disc replacement Medications: List All medication refills should be obtained through your primary care doctor or your clinic spine surgeon. Please discuss prescription refills at your follow up appointment. Do not call the hospital for medication refills. Dressing: Leave your dressing in place for a total of 3 days post operatively. Then you may remove your dressing and leave open to air. Keep the area clean and if not able to keep area clean, then cover with sterile gauze and tape. Showering: You may shower 3 days after your procedure allowing soap and water to run over incision. Do not scrub. Do not soak. Blot dry. Brace: Wear your soft collar when up and about, riding in cars or for support. Do not wear in shower or sleeping. Follow up: Please confirm a follow up appointment with your surgeon 2 weeks post operatibalta yuen. Please make an appointment to follow up with your PCP in 1-2 weeks after surgery for evaluation 3 phase, 3-week plan POST OP WEEKS 1-3 1. Lifting/carrying/pushing/pulling limited to less than 5 pounds. 2. Do not sit for longer than 15 minutes at one time. Get up and walk around. Prolonged sitting is NOT advised. If you lay down, see if you can tolerate laying down on you front (belly side) 3. Walk for periods of 15 minutes = 1 mile but no longer; do it multiple times times each day. 4.Ice your low back after activity. POST OP WEEKS 3-6 1. Lifting limited to less than 20 pounds. 2. Do not sit for longer than 30 minutes at a time. Frequently change positions. Use a sit-to stand workstation or take frequent breaks from sitting if you have returned to work. 3. Walk for 30 minutes each day. If possible, do these three or more times a day POST OP WEEKS 6+ At your 6-week appointment we will give you a physical therapy referral to focus on a core stabilization and strengthening program. You should also work on leg & buttock strengthening, hamstring & quadriceps stretching, and continue a low impact aerobic activity program such as swimming, walking, or riding a stationary bicycle. During the initial 6 weeks after your surgery, you are at the highest risk of re-injuring your spine. You should generally avoid BLTs (bending, lifting and twisting combination motions) and follow the above guidelines to reduce the chance of reinjury. You can anticipate post op appointments in our office at approximately 3 weeks and 6 weeks after your surgery. INCISION CARE: If your incision is not draining you do NOT need to cover it with a dressing. Keep your incision clean, dry and intact. In most cases, we apply skin glue, brooklynn or sutures to the incision at the time of surgery. This will be like a crust or have the appearance of a scab and will fall off in time on its own. The stitches or brooklynn need to be removed at 3 weeks post op appointment. You may begin to shower 3 days after surgery (this allows the glue to harvey well). However, please avoid scrubbing the incision site or peeling off any of the skin glue. This will ensure optimal healing of your incision. Also, during this time avoid soaking the incision area in water - this includes swimming pools, hot tubs or baths. No ointments, lotions or oils on the incision until your surgeon allows. Leave brooklynn, sutures or glue in place. Neurological dysfunction that comes on suddenly can also be a sign of a stroke. Below some common symptoms of a stroke are listed: B - balance difficulty such as sudden onset walking or leaning to one side - NEW E - eye problem such as sudden double vision or trouble seeing on one side - NEW F - Facial weakness or numbness on one side - NEW A - Arm or leg weakness or numbness on one side - NEW S - Slurred speech or difficulty with word finding - NEW T - Time is BRAIN! Call 911 as soon as you recognize these symptoms Diet: Consume a regular diet rich in vegetables and lean protein such as chicken or fish. You should consume in a ratio of approximately 20% fats|40% carbohydrates|40%protein. Vegetables, sweet potatoes, brown rice or quinoa are examples of good carbohydrates. Chips, white bread, cookies and sweets/sugar are examples of bad carbohydrates. Limit your bad carbs, go wild with good carbs. "Life's Simple 7" Guidelines as per [place] [employer] These will help you reclaim your life after surgery and flooring helper in your recovery, keeping in mind your restrictions. (1) Get Active. Physical activity can help people lose weight, control high blood pressure and cholesterol, feel emotionally better, and sleep better. (2) Control Cholesterol. Avoid a diet high in saturated fat, trans fat, & cholesterol. Limit whole milk & cream, ice cream, butter, egg yolks, processed meats (like sausage and hot dogs), and fatty meats. Choose healthy foods that are low in saturated fat, trans fat and cholesterol which include: Fruits and vegetables, fiber rich grain products (like whole grain pasta and brown rice), lean meat such as chicken, fish, nuts, seeds, and legumes. (3) Eat Better. Eat small portions. Shop at the grocery with a list and do no t stray from it. Tips for a healthy diet include: Limit sodium intake to less than 1500mg daily, avoid prepackaged, processed, and fast foods, choose a diet rich in fruits, vegetables, and whole grain, high fiber foods, and limit saturated & cholesterol in your diet. (4) Manage Blood Pressure. If you have high blood pressure, you should have a cuff at home so that you can check your blood pressure regularly. Be sure you have a good cuff. An arm one is generally better than a wrist one. Bring the cuff to a doctor's appointment to validate that the measurements that your cuff are taking are accurate. Take your blood pressure twice daily when you are sitting down and relaxing. Record the numbers in a log and bring this log with you to your doctors' appointments. (5) Lose Weight if your BMI is above 25. A healthy BMI is between 19-25. To calculate Your BMI, you may use a Standard BMI Calculator on the NIH BMI website: <www.nhlbi.nih.gov/guidelines/obesity/BMI/bmicalc.htm>. Weigh oneself daily. If you are overweight, set a goal to lose weight. A pound a week loss if needed is a good target. (6) Reduce Blood Sugar. Limit foods and liquids with "added sugars." (Added sugars include sucrose, fructose, glucose, maltose, dextrose, high fructose corn syrup, corn syrup, concentrated fruit juice and honey). (7) Stop Smoking. If you smoke, quitting smoking is one of the best things that you can do for your health. Smoking increases your risk of heart attack, stroke, and peripheral vascular disease, which is a build-up of plaque in your arteries. Please discard all the cigarettes and lighters in your house. Have a plan for what you will do when you have the urge to smoke. Direct and second- hand smoke shortens your life as well as the lives of your family, friends and others around you. For your health and the health of those around you, please consider quitting! Proper Bending Body Mechanics: Maintain a wide stance with one foot slightly in front of the other. Keep your back straight. Bend utilizing the strength in your hips and knees. Do not bend at the waist. Maintain the lifted object at your waist-level close to your body. Avoid lifting weight that causes immediately pain or pain anywhere in the body afterwards. Smoking/Nicotine If there was ever one thing that you could do to increase your overall health, decrease your risk of cardiovascular problems by about 39% the second you make the choice, it is to STOP SMOKING. Your body's most instant gratification is the second you stop smoking. We have all heard the studies, read the articles but it is true, smoking is extremely bad for your overall health, and moreover it is detrimental to your bone health. Nicotine, IN ANY FORM, kills bone cells, prevents your body from healing fractures, and significantly prolongs healing after surgery. In spine surgery specifically, it increases your risk of not healing your bones to create a fusion and increases your risk of having a revision surgery due to this up to 60%. I know it is hard. I know it feels impossible. But there are ways. Take control of your life. We are here to help you through it. And when you are ready, ask us and we can direct you to help if you desire. Use the START Plan to Quit Smoking (please visit the Helpguide.org website listed below for more information): S = Set a quit date. Choose a date within the next 2 weeks, so you have enough time to prepare without losing your motivation to quit. If you mainly smoke at work, quit on the weekend, so you have a few days to adjust to the change. T = Tell family, friends, and co-workers that you plan to quit. Let your friends and family in on your plan to quit smoking and tell them you need their support and encouragement to stop. Look for a quit gorge who wants to stop smoking as well. You can help each other get through the rough times. A = Anticipate and plan for the challenges you'll face while quitting. Most people who begin smoking again do so within the first 3 months. You can help yourself make it through by preparing ahead for common challenges, such as nicotine withdrawal and cigarette cravings. R = Remove cigarettes and other tobacco products from your home, car, and work. Throw away all your cigarettes (no emergency pack!), lighters, ashtrays, and matches. Wash your clothes and freshen up anything that smells like smoke. Shampoo your car, clean your drapes and carpet, and steam your furniture. T = Talk to your doctor about getting help to quit. Your doctor can prescribe medication to help with withdrawal and suggest other alternatives. If you can't see a doctor, you can get many products over the counter at your local pharmacy or grocery store, including the nicotine patch, nicotine lozenges, and nicotine gum. Resources for Quitting Smoking: <https://www.[place].gov/documents/md esquivel/Quit_Tobacco_Resources_for_patients_313480_7.pdf> Supplementation: Take recommended dosages of Vitamin D and Calcium to help fortify your bones and help them to heal. See your health maintenance packet for dosages and recommended levels. DVT/VTE prophylaxis: You will be given compression stockings from the hospital. Wear these daily for the first two weeks after surgery. You may take them off at night. You may be prescribed a medication to help thin your blood. Take this as directed. If you are not prescribed this medication, early and frequent ambulation has been shown to be the best prophylaxis to deep vein thrombosis and sequelae related to this event. Discharge Disposition: HOME SELF-CARE
--- NOTE | 2021-05-14 16:06 | P.OP ---
Date of Procedure: 05/13/21 Preoperative Diagnosis: 1. 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 RUE radiculopathy 3. RUE weakness 4. Neck pain Postoperative Diagnosis: 1. 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 RUE radiculopathy 3. RUE weakness 4. Neck pain Procedure(s) Performed: 1. C5-6 Total disc replacement 2. C6-7 Total disc replacement 3. Use of intraoperative neuromonitoring 4. Use of intraoperative microscope 5. Interpretation of intraoperative flouroscopy <1 hr Implants: Pro disc C 6 mm Large Deep x2 Anesthesia: GETA Surgeon: Vincent Crockett Media Analyst #1: Fabián Junior (Was present and necessary due to the complexity of the case) Estimated Blood Loss (ml): 50 IV fluids (ml): 1,500 Urine output (ml): 0 Pathology: none sent Condition: stable Disposition: PACU Indications for Procedure: 40 yo female with over 1 hear of UE radciulopathy, neck pain as well as RUE weakness has been followed by [facility] for her issues. She was found to have C5-6 and C6-7 HNP with stenosis. She underwent multiple different conservatie measures including PT, HEP, Medications and injections none of which aided in her sx. She has elected for total disc arthroplasty due to her ongoing refractory symptoms. We discussed all risks and benefits as out lined in risk review. She is ready and willing to proceed with procedure. Description of Procedure: The patient was seen and examined in the preoperative area. All preoperative protocols were followed. Informed consent was obtained risks and benefits of the procedure were discussed at length. Risks including bleeding infection damage to the surrounding tissue and risk of reoperation were discussed with the patient. Risk of anesthesia up to and including was a discussed with the patient. These are outlined in the risk review. They were willing to accept these risks and all of the risks of surgery. The patient was given a weight- based dose of antibiotics in the form of 2 g Ancef. The patient was seen and evaluated by the anesthesia team who deemed them fit for surgery. The site was marked, the patient was willing to proceed with the procedure. The patient was transferred to the operative suite by the Department of anesthesia. They were then drifted off to sleep by the department anesthesia and GETA was performed. The patient tolerated this well. . Once confirmation of lines and ventilation the patient was transferred to a flat type trios table supine. Shoulder rolls were placed. Shoulders were taped gently to the table with hockey tape. All bony prominences including wrists, elbows, axilla, chest, hips, and thighs, and feet were padded very well. Special attention was paid to the genitalia and these were padded accordingly. SCDs were placed on bilateral lower extremities and were connected. Arms were well padded and placed tucked at the side well-padded thumb's up. Once in position, again we confirmed good ventilation capabilities and that lines were running appropriately. The patient's anterior cervical spine was then exposed. 1010s were placed outlining the incision site. Standard alcohol was used to clean the incision site and allowed to dry. C-arm was used to biomark the patient and confirm level for incision which was marked with a skin marker. Operative briefing was performed with all teams and everyone in agreement to proceed. The patient was then prepped and draped in a normal sterile fashion. Timeout was then performed and all parties were in agreement with the procedure to be performed. Incision was made over the previously by marked area on the right-hand side and a standard Gee-Vela approach to the anterior cervical spine was performed. Once we had dissected down to the anterior cervical spine retractors were placed we then used a blunt probe to max on lateral fluoroscopy the levels of C5 6 and C6 7. Once this had been marked subperiosteal dissection of the ala L as well as disc material was performed E longissimus muscles were elevated bilaterally and the retractors were replaced deep to longissimus muscle. We started at C6-C7 [place] pins were placed in the C6 and C7 using lateral f luoroscopy. We then release the disc using a Michael Sharif. Distractor was then placed and gentle distraction was taken under lateral fluoroscopy. We then performed discectomy. PLL was released using a 60 curet followed by [place]ison rongeurs. A complete deep compression as well as bilateral foraminotomies was performed using Kerrison rongeurs. We then selected a trial implant incisor for a Prodisc C implant. This was then selected and impacted under lateral fluoroscopy once it was in good position to confirm the size. We then took an AP fluoroscopic image to ensure that we are midline and we were. Then back under lateral fluoroscopy once the jig was placed we performed a burring of the jessie. This is done under pulsed lateral fluoroscopy. Once these were burred the chisels were passed over the jig to ensure the keel was cleaned. We performed minimal burring of the endplates we did remove posterior osteophyte with high-speed bur. We then selected our implant and this was impacted into place under lateral fluoroscopy after cleaning of the jessie and irrigation. Once it was impacted into good position under lateral fluoroscopy the warehouse hand was removed and the disc was tested and it was stable. We then removed the [place] pin from C7 and placed bone wax in his void. We then placed a [place] pin into C5 under lateral fluoroscopy. We then turned our attention to C5-C6 the disc was removed released and gentle distraction was then placed through the distractor on the [place] pins. We then performed discectomy uncovertebral joint to uncovertebral joint. The PLL was then identified high-speed bur was used to remove the posterior osteophytes of the inferior endplate of C5. The PLL was then released with 60 up-biting curet followed by 20 Kerrisons. Performed bilateral foraminotomies as well as discectomy and decompression. There is a large disc herniation per sling centrally on the right-hand side of C5-C6 which was removed entirely. Once we had released this area and done a thorough decompression meticulous hemostasis was performed. We then placed a trial sizer for a Prodisc C. Once we had selected the we then performed burring under lateral fluoroscopic guidance of the jessie. We then passed the chisel over the guide to ensure the jessie were cleaned. The trial was then removed and the jessie were cleaned once again we then irrigated the wound thoroughly and disc space performed meticulous hemostasis with hemostatic agents. We then selected the final implant and this was impacted under lateral fluoroscopic guidance. Once it was in good position the warehouse hand was removed the disks was tested and was stable. Distraction was removed prior to the disc insertion. I copiously irrigated the wound with normal sterile saline. Final images were taken the implants are in good position. Surgicel was placed deep within the wound a layered closure was then performed 3-0 Vicryl was used in the platysmal layer followed by 3-0 Vicryl in the subcu layer followed by 40 strata fix and the subcuticular layer. Wound was then cleaned and dressed sterilely with X-glue followed by Telfa once the glue was dry and Tegaderm. The patient was transferred back to their hospital bed atraumatically. . Patient was then awakened and extubated by the department of anesthesia having tolerated the procedure very well with no complications. They were transferred to the postoperative care unit in stable condition.
--- NOTE | 2021-05-14 22:46 | P.CONS ---
History of Present Illness - Reason for Consult Consult date: 05/13/21 Medical management Requesting physician: Vincent Crockett - Chief Complaint Right arm pain - History of Present Illness This is a pleasant 40-year-old patient who follows Dr. Santana. Rather good health. Patient for about a year as having having pain in the neck going down the right arm. Patient also gets some numbness and tingling in the index middle and ring finger. Special with activity. Patient has tried conservative measurements not with much help. Also been a few trips to the chiropractor. Patient underwent surgery for the same earlier today. Has a cervical collar. Currently laying in bed. Able to tolerate liquids. No stridor. Review of systems: GEN.: None EYES: None HEENT: As above NECK: None RESPIRATORY: None CARDIOVASCULAR: None GASTROINTESTINAL: None GENITOURINARY: None MUSCULOSKELETAL: As above LYMPHATICS: None HEMATOLOGICAL: None PSYCHIATRY: None NEUROLOGICAL: As above Past medical history to include: Cervical radiculopathy Social history: . No smoking no alcohol. 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 EYES: Pupils equal. Conjunctiva normal. HEENT: External appearance of nose and ears normal, oral cavity grossly normal. NECK: [Cervical collar in place. HEART: First and second heart sounds are normal; no edema. LUNGS: Respiratory rate normal; clear to auscultation. ABDOMEN: Soft, nontender, liver spleen not palpable, no masses palpable. PSYCH: Alert and oriented x3; mood and affect normal. NEUROLOGICAL: Cranial nerves grossly intact; no facial asymmetry, power and sensation grossly intact. LYMPHATICS: No lymph nodes palpable in the axilla and neck Assessment and plan: -Persistent cervical radiculopathy, having failed conservative treatment. C5-C6, C6-C7 total disc replacement. -Right upper extremity paresis Cervical spine surgery -Cervical spine pain with severe stenosis Pain management Patient is a collar in place. Pain medications. DVT prophylaxis with Venodyne boots. Activity as tolerated. Thank you Dr. Crockett Past Medical History Past Medical History: Musculoskeletal Disorder Additional Past Medical History / Comment(s): numbness down right arm primarily History of Any Multi-Drug Resistant Organisms: None Reported Past Surgical History: Section Past Anesthesia/Blood Transfusion Reactions: No Reported Reaction Smoking Status: Former smoker - Past Family History Mother Family Medical History: No Reported History Medications and Allergies Home Medications Medication Instructions Recorded Confirmed Type Ascorbic Acid [Vitamin C] 500 mg PO DAILY 05/07/21 05/13/21 History Calcium Carbonate [Calcium] 600 mg PO DAILY 05/07/21 05/13/21 History Cholecalciferol [Vitamin D3 (25 25 mcg PO DAILY 05/07/21 05/13/21 History Mcg = 1000 Iu)] Turmeric Root Extract [Turmeric] 500 mg PO DAILY 05/07/21 05/13/21 History Cyclobenzaprine [Flexeril] 10 mg PO HS PRN #40 tab 05/14/21 Rx Gabapentin 300 mg PO TID 3 Days #9 cap 05/14/21 Rx HYDROcodone/APAP 5-325MG [[place] 1 tab PO Q4HR PRN #56 tab 05/14/21 Rx 5-325] Indomethacin [Indocin] 50 mg PO BID #28 capsule 05/14/21 Rx cefaDROXiL [Duricef] 500 mg PO Q12HR #10 cap 05/14/21 Rx Allergies Allergy/AdvReac Type Severity Reaction Status Date / Time No Known Allergies Allergy Verified 05/13/21 06:20 Physical Exam Vitals: Vital Signs Temp Pulse Pulse Pulse Resp BP BP 05/13/21 19:30 98.3 F 65 18 05/13/21 13:48 98.2 F 76 16 119/77 05/13/21 13:16 70 16 05/13/21 12:46 73 16 05/13/21 12:17 05/13/21 12:15 74 16 05/13/21 12:00 69 16 05/13/21 11:45 66 16 05/13/21 11:30 75 16 05/13/21 11:15 66 16 05/13/21 11:00 70 16 05/13/21 10:45 76 16 05/13/21 10:30 84 16 05/13/21 10:15 97.8 F 80 16 05/13/21 06:29 98.8 F 75 16 125/77 BP Pulse Ox 05/13/21 19:30 133/75 99 05/13/21 13:48 95 05/13/21 13:16 114/62 98 05/13/21 12:46 114/67 97 05/13/21 12:17 115/59 05/13/21 12:15 120/63 97 05/13/21 12:00 112/63 96 05/13/21 11:45 112/63 97 05/13/21 11:30 121/63 97 05/13/21 11:15 118/60 97 05/13/21 11:00 128/68 97 05/13/21 10:45 121/61 98 05/13/21 10:30 121/60 98 05/13/21 10:15 123/69 97 05/13/21 06:29 96 Intake and Output 05/13/21 05/13/21 05/13/21 06:59 14:59 22:59 Intake Total 2300 130 Output Total 10 Balance 2290 130 Intake: IV 2300 Intake, IV Titration 130 Amount Lactated Ringers 1,000 ml 80 @ 0 mls/hr IV .[facility] Rx#:[id number] ceFAZolin 2 gm In Sodium 50 Chloride 0.9% 50 ml @ 100 mls/hr IVPB Q8HR [facility] Rx# :[id number] Output: Estimated Blood Loss 10 Other: Voiding Method Toilet Weight 73 kg Results CBC & Chem 7: 05/14/21 06:04
--- NOTE | 2021-05-14 22:48 | P.PN ---
Progress Note - Text Progress Note Date: 05/14/21 - Chief Complaint Right arm pain This is a pleasant 40-year-old patient who follows Dr. Santana. Rather good health. Patient for about a year as having having pain in the neck going down the right arm. Patient also gets some numbness and tingling in the index middle and ring finger. Special with activity. Patient has tried conservative measurements not with much help. Also been a few trips to the chiropractor. Patient underwent surgery for the same earlier today. Has a cervical collar. Currently laying in bed. Able to tolerate liquids. No stridor. May 14: Sitting at edge of the bed. Had a breakfast. Some pain at the op erative site. 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 present. Medically stable for discharge. Follow-up with PCP. Review of systems: Was done for constitutional, cardiovascular, GI, pulmonary. relevant finding as above Current medications reviewed Past medical history to include: Cervical radiculopathy Social history: . No smoking no alcohol. 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 Conjunctiva normal. NECK: [Cervical collar in place. HEART: First and second heart sounds are normal; no edema. LUNGS: Respiratory rate normal; clear to auscultation. ABDOMEN: Soft, nontender, liver spleen not palpable, no masses palpable. PSYCH: Alert and oriented x3; mood and affect normal. NEUROLOGICAL: Grants Specialist in the right arm. Assessment and plan: -Persistent cervical radiculopathy, having failed conservative treatment. C5-C6, C6-C7 total disc replacement. -Right upper extremity paresis Cervical spine surgery -Cervical spine pain with severe stenosis Pain management Continue current treatment. Activity as per orthopedics. Follow up with Dr. Santana. Questions answered. Thank you Dr. Crockett
== END 2021-05-14 11:32 | disposition home or self-care (01) ==
LOC: OR 05:41 → 5NMEDONC 10:03 → OR 05-14 11:32
PROVIDERS: ATTEND Orthopaedic Surgery
DX: M50.122 Cervical disc disorder at C5-C6 level with radiculopathy (principal); M48.02 Spinal stenosis, cervical region; M47.22 Other spondylosis with radiculopathy, cervical region; Z98.891 History of uterine scar from previous surgery; Z87.891 Personal history of nicotine dependence
CPT/HCPCS: 97161; 81025; 86900; 86901; 85025; 86850; 87635; 72040; 72050; 36415; 22856; 22858; 63045; 63048; L0120; C1713; C1762; J1200; J0690; J2405; J1170

== ENCOUNTER → 2021-07-07 | Outpatient (CLI) | payer BC ==
--- NOTE | 2021-07-09 13:17 | MM ---
Reason for exam: screening (asymptomatic). Last mammogram was performed 1 year and 4 months ago. History: Patient had first child at age 32. Took hormonal contraceptives for 15 years beginning at age 17. Physical Findings: A clinical breast exam by your physician is recommended on an annual basis and results should be correlated with mammographic findings. MG Screening Mammo w CAD Bilateral CC and MLO view(s) were taken. Prior study comparison: March 04, 2020, bilateral MG screening mammo w CAD. August 03, 2018, right breast MG work up mamm w CAD RT. There are scattered fibroglandular densities. There is chronic nodularity in the right breast. Global asymmetry left upper outer quadrant is unchanged. No significant changes when compared with prior studies. ASSESSMENT: Benign, BI-RAD 2 RECOMMENDATION: Routine screening mammogram of both breasts in 1 year.
== END | disposition home or self-care (01) ==
LOC: RADMAMWWP 09:08
PROVIDERS: ATTEND Obstetrics & Gynecology
DX: Z12.31 Encounter for screening mammogram for malignant neoplasm of breast (principal)
CPT/HCPCS: 77067

== ENCOUNTER → 2024-08-15 | Outpatient (CLI) | payer BC ==
--- NOTE | 2024-08-15 08:15 | MM ---
Reason for Exam: Screening (asymptomatic). Last mammogram was performed 1 year(s) and 1 month(s) ago. Patient History: Menarche at age 10. First Full-Term at age 32. Late child-bearing (after 28). Premenopausal. Hormonal Contraceptives for 15 years from age 17 until age 32. Last menstrual period: 08/07/2024 Risk Values: Jessica 5 year model risk: 1.2%. NCI Lifetime model risk: 12.8%. Prior Study Comparison: 09/13/2013 Bilateral Screening Mammogram, [facility]. 07/22/2018 Bilateral Screening Mammogram, [facility]. 08/03/2018 Right Diagnostic Mammogram, [facility]. 03/04/2020 Bilateral Screening Mammogram, [facility]. 07/07/2021 Bilateral Screening Mammogram, [facility]. 07/15/2022 Bilateral MG screening mammo w CAD, [facility]. 07/19/2023 Bilateral MG 3D screening mammo w/cad, [facility]. Tissue Density: The breasts are heterogeneously dense, which may obscure small masses. Findings: Analyzed By CAD. There is no suspicious group of microcalcifications or new suspicious mass in either breast. Overall Assessment: Benign, BI-RAD 2 Management: Screening Mammogram of both breasts in 1 year. . Patient should continue monthly self-breast exams. A clinical breast exam by your physician is recommended on an annual basis. This exam should not preclude additional follow-up of suspicious palpable abnormalities. Note on Jessica scores and lifetime risk: 1. A Jessica score greater than 3% is considered moderate risk. If this is the case, consider specialist referral to assess eligibility for a risk reducing agent. 2. If overall lifetime risk for the development of breast cancer is 20% or higher, the patient may qualify for future screening with alternating mammogram and breast MRI. [facility], , 08/15/2024 8:13 AM. Electronically signed and approved by: Rigo Barnett M.D. Radiologis
== END | disposition home or self-care (01) ==
LOC: RADMAMWWP 07:48
PROVIDERS: ATTEND Obstetrics & Gynecology
DX: Z12.31 Encounter for screening mammogram for malignant neoplasm of breast (principal); R92.333 Mammographic heterogeneous density, bilateral breasts; Z92.0 Personal history of contraception
CPT/HCPCS: 77063; 77067